=== PATIENT | female | born 2000 | race African-American/Black ===

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

== ENCOUNTER 2018-11-12 05:10 | Emergency (ER) | payer BC, MEDICAID ==
[~2018-11-12] VITALS: Ht 167.6 cm; Wt 57.0 kg
[2018-11-12 05:37] VITALS: BP 118/76
[2018-11-12] MEDS ORDERED: DEXAMETHASONE 10 MG/ML VIAL IV ONE (06:45)
== END 2018-11-12 08:06 | disposition home or self-care (01) ==
LOC: ER 05:10
DX: J03.90 Acute tonsillitis, unspecified (principal)
CPT/HCPCS: 81025; 87070; 87430; 96374; 99283; J1100

== ENCOUNTER 2018-11-26 14:34 | Emergency (ER) | payer BC, MEDICAID ==
[~2018-11-26] VITALS: Ht 165.1 cm; Wt 55.0 kg
[2018-11-26 18:15] VITALS: BP 118/83
== END 2018-11-26 18:15 | disposition home or self-care (01) ==
LOC: ER 14:34
DX: J03.90 Acute tonsillitis, unspecified (principal)
CPT/HCPCS: 87070; 87430; 99281; 99283